=== PATIENT | male | born 1945 | race Caucasian/White ===

== ENCOUNTER 2021-07-06 12:40 | Inpatient (IN) | payer MEDICARE, BC ==
--- NOTE | 2021-07-06 13:09 | EDM.PDOC ---
Scribed by Chantal Fields 07/06/21 1799 for Chad Cardenas MD ED HPI GENERAL MEDICAL PROBLEM - General Chief Complaint: General Stated Complaint: AMBULANCE Time Seen by Provider: 07/06/21 12:40 Source of Information: Reports: Patient, EMS, EMS Notes Reviewed, RN, RN Notes Reviewed History Limitations: Reports: No Limitations - History of Present Illness INITIAL COMMENTS - FREE TEXT/NARRATIVE: Patient arrives to ED by [facility] requesting admission for end of life care. Patient has been on home hospice, but does not have 24 hour care and lives alone. today he got down on the floor and could not get up. He required 2 person assist to get him up on the commode. While on the commode he began to struggle to breathe. Family and patient determined at that time that he should be taken out of the home to the hospital, where comfort and end of life care could be provided. Patient and his Durable Power of Pediatric Immunologist both agree that do not wish to have any medical interventions, other than oxygen and pain control as needed. Patient is documented DNR-DNI. Patient denies any pain at this time. Duration: Chronic, Getting Worse Location: Reports: Generalized - Related Data Allergies Allergy/AdvReac Type Severity Reaction Status Date / Time No Known Allergies Allergy Verified 05/21/21 11:41 Past Medical History Respiratory History: Reports: COPD Endocrine/Metabolic History: Reports: Diabetes, Type II Oncologic (Cancer) History: Reports: Lung, Metastatic Social & Family History - Family History Family Medical History: Unobtainable - Tobacco Use Tobacco Use Status *Q: Former Tobacco User Tobacco Use Within Last Twelve Months: Cigarettes - Living Situation & Occupation Living situation: Reports: Single, Alone Occupation: Retired ED ROS GENERAL - Review of Systems Review Of Systems: Comprehensive ROS is negative, except as noted in HPI. ED EXAM, GENERAL - Physical Exam Exam: See Below Exam Limited By: No Limitations General Appearance: Alert, Thin, Cachetic, Other (Chronically ill, appears to be near end of life.) Eye Exam: Bilateral Eye: Normal Inspection Ears: Hearing Grossly Normal Nose: Normal Inspection Throat/Mouth: Normal Voice, No Airway Compromise Head: Atraumatic, Normocephalic Respiratory/Chest: Decreased Breath Sounds, Crackles, Wheezing. No: Rales, Rhonchi Cardiovascular: Regular Rate, Rhythm, Tachycardia Extremities: Non-Tender, Other (Thin with muscle wasting) Neurological: Alert, Oriented, No Motor/Sensory Deficits (generalized weakness) Psychiatric: Depressed Mood, Flat Affect Skin Exam: Warm, Dry, No Rash, Cyanosis, Pallor. No: Ecchymosis, Jaundice, Petechiae Course - Re-Assessments/Exams Free Text/Narrative Re-Assessment/Exam: 07/06/21 13:05 Hospice nurse and brother (DPOA/DMPOA) present in ER with the pt. All present, including the pt agree that they do not wish to have diagnostic testing, or medical treatments. They wish to have comfort and pain control for end of life care. Departure - Departure Time of Disposition: 13:07 (admitted to Dr. Rosales) Disposition: Admitted As Inpatient 64 Condition: Poor Clinical Impression: End of life care Stage 4 lung cancer Qualifiers: Laterality: unspecified laterality Qualified Code(s): C34.90 - Malignant neoplasm of unspecified part of unspecified bronchus or lung Chronic respiratory failure Qualifiers: Respiratory failure complication: unspecified whether with hypoxia or hypercapnia Qualified Code(s): J96.10 - Chronic respiratory failure, unspecified whether with hypoxia or hypercapnia - Discharge Information *PRESCRIPTION DRUG MONITORING PROGRAM REVIEWED*: Not Applicable *COPY OF PRESCRIPTION DRUG MONITORING REPORT IN PATIENT GERRY: Not Applicable Forms: ED Department Discharge I have read and agree with the documentation that has been completed regarding this visit. By signing this record, I attest that the documentation was completed in my physical presence and is an accurate record of the encounter.
[2021-07-06] MEDS ORDERED: Acetaminophen 325 MG Tab PO PRN (13:52)
[2021-07-06] MEDS ORDERED: Ondansetron 4 MG/2 ML SDV IVPUSH PRN ×2 (13:52→13:53)
[2021-07-06] MEDS ORDERED: diphenhydrAMINE 25 MG Tab PO PRN (13:53)
[2021-07-06] MEDS ORDERED: diphenhydrAMINE 50 MG/ML SDV IVPUSH PRN (13:53)
[2021-07-06] MEDS ORDERED: Naloxone 2 MG/2 ML Syringe IVPUSH PRN (13:53)
[2021-07-06] MEDS ORDERED: LORazepam 2 MG/ML SDV IVPUSH PRN (13:55)
[2021-07-06] MEDS ORDERED: Albuterol/Ipratropium 3.0-0.5 MG/3 ML Neb Soln NEB PRN (13:55)
[2021-07-06 13:58] LABS: CORONAVIRUS COVID-19 NAA NEGATIVE (NEGATIVE)
--- NOTE | 2021-07-06 13:58 | PCM.SN.2 ---
- Free Text/Narrative Note: START OF DOCTOR IVANA HISTORY AND PHYSICAL / CONSULTATION NOTE Chief Complaint: Admission for comfort measures for stage IV metastatic lung cancer History of Present Illness: The patient is a 76-year-old male who was enrolled in hospice who was transferred to the emergency department due to inability to receive sufficient services at home with hospice. Unfortunately, at the present time, the patient is too dyspneic to provide history of present illness however he does have his brother and a female family member present who provide past medical history. He presents for further evaluation Surgical History: Per patient's family: Bilateral cataract surgery Family History: Per patient's family: Cancer, stroke, diabetes, coronary artery disease, hypertension, hyperlipidemia Social History: Tobacco: Per patient's family member: Former smoker Alcohol: Per patient's family member: Denies Caffeine: Per patient's family member: Coffee, cola Drugs: Per patient's family member: Never Allergies: Per patient's family member and medical records: No known drug allergies Code Status: Per patient's family member: DNR, DNI Pertinent Laboratory Results / Pertinent Radiology Results / Pertinent Diagnostic Results / Pertinent Vital Signs: Physical Examination: General: -Alert -No acute distress -Patient dyspneic -Patient tachypneic Head: -Atraumatic -Normocephalic Eyes: -Pupils equally round and reactive to light and accommodation -Extraocular muscles intact Neurological: -Cranial nerves II-XII intact Neck: -No jugular venous distention -No thyromegaly -No cervical lymphadenopathy Heart: -iRegular rate -Regular rhythm -No murmurs -No gallops -No rubs Lungs: -No wheeze -Bilateral rhonchi present -No rales Abdomen: -Normal bowel sounds in all four quadrants -No rebound -No guarding -No tenderness Extremities: -2/4 pulse in all four extremities -No clubbing -No cyanosis -No edema -No calf tenderness present bilaterally -Negative Homans sign bilaterally Musculoskeletal: -5/5 bilateral upper extremity strength -5/5 bilateral lower extremity strength -Sensorium of bilateral upper extremities are equal and intact -Sensorium of bilateral lower extremities are equal and intact Additional Details / Additional Findings / Exceptions / Miscellaneous: Assessment / Plan: Comfort care for stage IV lung cancer. IV morphine drip to be titrated to a respiratory rate of 8 to 14 breaths/min. DuoNeb every 4 hours as needed shortness of breath/wheeze. Ativan 1 mg IV every 1 hour as needed anxiety/agitation. Zofran 4 mg IV every 4 hours as needed nausea/vomiting. Tylenol 650 mg p.o. every 4 hours as needed fever/minor pain Diverticulosis Glaucoma COPD Diabetes Hyperlipidemia Hypertension DVT prophylaxis. Not indicated as the patient is undergoing comfort care/end-of-life care Disposition: Anticipate meant within 24 hours END OF DOCTOR EMAMIS HISTORY AND PHYSICAL / CONSULTATION NOTE
[2021-07-06] MEDS ORDERED: Morphine PF 30 MG/30 ML PCA Vial IV SCH (14:00)
[2021-07-06] MEDS ORDERED: Morphine 4 MG/ML Syringe IVPUSH ONE (14:19)
[2021-07-06] MEDS: Morphine 2 MG/ML SYRINGE IVPUSH SCH ×2 (15:07→15:55)
[2021-07-06] MEDS: Morphine 4 MG/ML Syringe IVPUSH SCH ×2 (16:58→17:55)
[2021-07-06] MEDS ORDERED: Morphine 4 MG/ML Syringe IVPUSH SCH (19:00)
[2021-07-06] MEDS: Morphine 10 MG/ML Syringe IVPUSH SCH ×4 (20:11→23:07)
[2021-07-06] MEDS: Sodium Chloride 0.9% 10 ML Syringe FLUSH PRN ×3 (21:11→23:08)
[2021-07-07] MEDS: Morphine 10 MG/ML Syringe IVPUSH SCH (03:47)
--- NOTE | 2021-07-07 07:10 | PCM.SN.2 ---
- Free Text/Narrative Note: START OF DOCTOR EMAMIS DISCHARGE SUMMARY Date of Admission: July 06, 2021 Date of meant: 4:07 AM on July 07, 2021 Primary Diagnosis: Comfort care for stage IV lung cancer Secondary Diagnosis: Diverticulosis Glaucoma COPD Diabetes Hyperlipidemia Hypertension Consultations: None Condition on Discharge: Disposition: The patient is as of 4:07 AM on July 07, 2021 Discharge Medications: None dispensed as the patient is END OF DOCTOR EMAMIS DISCHARGE SUMMARY
== END 2021-07-07 05:00 | disposition expired | DRG 951 ==
LOC: DL.ED 12:40 → DL.MS 13:39
PROVIDERS: ADMIT Internal Medicine; ATTEND Internal Medicine
DX: Z51.5 Encounter for palliative care (principal); C34.90 Malignant neoplasm of unspecified part of unspecified bronchus or lung; J96.10 Chronic respiratory failure, unspecified whether with hypoxia or hypercapnia; C79.9 Secondary malignant neoplasm of unspecified site; K57.90 Diverticulosis of intestine, part unspecified, without perforation or abscess without bleeding; H40.9 Unspecified glaucoma; J44.9 Chronic obstructive pulmonary disease, unspecified; E78.5 Hyperlipidemia, unspecified; I10 Essential (primary) hypertension; Z66 Do not resuscitate; E11.9 Type 2 diabetes mellitus without complications; Z20.822 Contact with and (suspected) exposure to COVID-19; Z82.3 Family history of stroke; Z83.3 Family history of diabetes mellitus; Z82.49 Family history of ischemic heart disease and other diseases of the circulatory system; Z83.438 Family history of other disorder of lipoprotein metabolism and other lipidemia; Z98.41 Cataract extraction status, right eye; Z98.42 Cataract extraction status, left eye; Z87.891 Personal history of nicotine dependence; Z28.82 Immunization not carried out because of caregiver refusal
CPT/HCPCS: 0240U; 51702; 99285; J2060; J2270